=== PATIENT | male | born 1945 | race Caucasian/White ===

== ENCOUNTER → 2016-11-13 | Outpatient (CLI) | payer MEDICARE, BC ==
[~2016-11-13] MED LIST: ASPIRIN; ATENOLOL; AVANDIA; GLUCOVANCE 5/501 TA1; NIASPAN ER; ZOCOR
--- NOTE | ~2016-11-13 | CR58 ---
[facility] A Service of [facility] & [facility] RADIOLOGY TEXT RESULTS PATIENT: WARREN ARZATE LOCATION: [facility] : 49 UNIT #: [id number] AGE: [address]: ROSA MARIA DUQUE APRN SEX: M ORDER DR: [id number] [facility] [address] [place], [place] [address] [id number] O MR#: [id number] Acc #: [id number] NAME: WARREN ARZATE : 1945 SEX: M STUDY DATE/TIME: 11/13/2016 10:09 UNIT: [facility] ROOM: STUDY DESCRIPTION: CR Cervical Spine 2 or 3 Views Attending Physician: Rosa Maria Duque A.P.R.N. Referring Physician: Rosa Maria Duque A.P.R.N. Ordering Physician: Rosa Maria Duque A.P.R.N. Primary Care Physician: No Primary Care Physician MEDICAL IMAGING REPORT This report is preliminary unless electronic signature is present EXAM Cervical series 11/13/2016 INDICATIONS 71-year-old male with history of cervical cord compression and myelopathy. Pain in the neck. Fusion procedure a month ago. Skin cancer.; Lateral, frontal, open-mouth odontoid and dedicated odontoid views performed. No comparisons. FINDINGS Anterior cervical fusion hardware spans the C3-C6 levels. Fixation hardware appears intact. There is cervical straightening. Alignment is otherwise preserved. No acute fracture. Soft tissues within normal limits. There is multilevel facet arthropathy. No acute fracture. Atherosclerotic calcifications in the carotid systems bilaterally are a risk factor for stroke. Dens and lateral masses intact. IMPRESSION 1. Postop changes of anterior cervical fusion. Cervical straightening but no acute fracture or malalignment. 2. Atherosclerotic carotid artery calcifications bilaterally are a risk factor for stroke. Dictated by... Gurdeep Barraza M.D. THIS IS AN ELECTRONICALLY VERIFIED REPORT Gurdeep Barraza M.D. at 11/13/2016 4:49 PM Nabila TD: 11/13/2016 15:13 JOB #: [id number] [facility] A Service of [facility] & [facility] RADIOLOGY TEXT RESULTS PATIENT: WARREN ARZATE LOCATION: [facility] #: [id number] : 49 UNIT #: [id number] AGE: [address]: ROSA MARIA DUQUE APRN SEX: M ORDER DR: MEDICAL IMAGING REPORT Page 1 of 1 COPY
== END | disposition home or self-care (01) ==
LOC: CRAD 09:51
DX: G95.20 Unspecified cord compression (principal); I65.23 Occlusion and stenosis of bilateral carotid arteries; G95.9 Disease of spinal cord, unspecified; Z98.1 Arthrodesis status
CPT/HCPCS: 72040